=== PATIENT | male | born 1965 | race Caucasian/White ===

== ENCOUNTER 2017-03-04 15:06 | Emergency (ER) | payer SELFPAY ==
[~2017-03-04] VITALS: Ht 172.7 cm; Wt 77.0 kg
[2017-03-04] MEDS ORDERED: MORPHINE SULFATE 10 MG/ML CPJ IM ONE (16:00)
[2017-03-04] MEDS ORDERED: SILVER SULFADIAZINE 1% CREAM 25GM TOP ONE (18:15)
[2017-03-04] MEDS ORDERED: BACITRACIN ZINC OINT UDPKT TOP ONE (18:15)
[2017-03-04 18:26] VITALS: BP 160/76
[2017-03-04] MEDS ORDERED: TETANUS, DIPHTHERIA, PERTUSSIS VAC/PF 0.5ML (>7YR OLD) IM ONE (18:45)
== END 2017-03-04 19:24 | disposition home or self-care (01) ==
LOC: ER 15:17
DX: S09.8XXA Other specified injuries of head, initial encounter (principal); M79.1 Myalgia; V19.9XXA Pedal cyclist (driver) (passenger) injured in unspecified traffic accident, initial encounter; Y93.89 Activity, other specified; Y92.89 Other specified places as the place of occurrence of the external cause; Y99.8 Other external cause status
CPT/HCPCS: 70450; 71010; 76705; 90471; 90715; 96372; 99284; J2270